=== PATIENT | male | born 1980 | race Two or more races ===

== ENCOUNTER 2025-01-31 14:09 | Inpatient (IN) | payer OTHER ==
[~2025-01-31] VITALS: Ht 170.2 cm; Wt 86.0 kg
[2025-01-31 16:24] LABS: APPEARANCE,URINE CLEAR (CLEAR); BILIRUBIN,URINE NEGATIVE (NEGATIVE); COLOR,URINE COLORLESS (YELLOW); GLUCOSE, URINE (UA) NEGATIVE (NEGATIVE); KETONES,URINE NEGATIVE (NEGATIVE); LEUKOCYTE ESTERASE ,URINE NEGATIVE (NEGATIVE); NITRATE,URINE NEGATIVE (NEGATIVE); OCCULT BLOOD,URINE NEGATIVE (NEGATIVE); PROTEIN,URINE NEGATIVE (NEGATIVE); UROBILINOGEN,URINE <=1.0 mg/dL (<=1.0)
[2025-01-31 16:45] LABS: BASOPHILS % (AUTO) 0.4 % (0.0-2.0); EOSINOPHILS % (AUTO) 1.9 % (1.0-6.0); HEMATOCRIT 42.2 % (41-53); HEMOGLOBIN 14.6 g/dL (13.5-17.5); LYMPHOCYTES # (AUTO) 1.9 K/uL (1.0-4.8); LYMPHOCYTES % (AUTO) 22.4 % (22.0-44.0); MEAN CORPUSCULAR HEMOGLOBIN 31.4 pg (26.0-34.0); MEAN CORPUSCULAR HGB CONC 34.5 G/dL (31.0-37.0); MEAN CORPUSCULAR VOLUME 91 fL (80-100); MONOCYTES # (AUTO) 0.6 K/uL (0.1-1.0); NEUTROPHILS # (AUTO) 5.6 K/uL (1.8-7.7); NEUTROPHILS % (AUTO) 68.3 % (40.0-70.0); PLATELET COUNT (AUTO) 207 K/uL (150-450); RED BLOOD CELL COUNT(AUTO) 4.63 MIL/uL (4.50-5.90); RED CELL DISTRIBUTION WIDTH 13.6 % (11.5-14.5); WHITE BLOOD COUNT (AUTO) 8.2 K/uL (4.5-11.0)
[2025-01-31] MEDS: KETOROLAC TROMETHAMINE 30 MG/ML VIAL IVP ONE (16:55)
[2025-01-31] MEDS: ONDANSETRON HCL 4 MG/2 ML VIAL IVP ONE (16:55)
[2025-01-31] MEDS: SODIUM CHLORIDE 0.9% 1,000 ML IV ONE (16:56)
[2025-01-31] MEDS: TAMSULOSIN HCL 0.4 MG CAPSULE PO ONE ×2 (16:56→21:30)
[2025-01-31 17:05] LABS: CALCIUM, TOTAL 9.2 mg/dL (8.8-10.5); CREATININE 1.99 mg/dL (0.60-1.30); POTASSIUM 3.9 mmol/L (3.5-5.1)
[2025-01-31] MEDS ORDERED: ALBUTEROL SULFATE 2.5 MG/0.5 ML NEB SOLUTION NEB PRN (19:30)
[2025-01-31] MEDS ORDERED: MAGNESIUM HYDROXIDE SUSPENSION 30 ML UDCUP PO PRN (19:30)
[2025-01-31] MEDS: SODIUM CHLORIDE 0.9% 1,000 ML IV SCH (19:30)
[2025-01-31] MEDS ORDERED: BISACODYL 10 MG RECTAL RECTAL SUPPOSITORY PR PRN (19:30)
[2025-01-31] MEDS ORDERED: IPRATROPIUM BROMIDE 0.5 MG/2.5 ML NEB SOLUTION NEB PRN (19:30)
[2025-01-31] MEDS ORDERED: ZOLPIDEM TARTRATE 5 MG TABLET PO PRN (19:30)
[2025-01-31] MEDS: MORPHINE SULFATE 2 MG/ML SYRINGE IVP PRN (22:04)
[2025-01-31] MEDS: ONDANSETRON HCL 4 MG/2 ML VIAL IVP PRN (22:05)
[2025-02-01 02:17] VITALS: BP 117/82; PULSE 56; RESP 0; RESP 18; TEMP 97.9; O2SAT 96
[2025-02-01 08:00] VITALS: BP 112/72; PULSE 60; RESP 19; TEMP 97.5; O2SAT 99
[2025-02-01] MEDS: PANTOPRAZOLE SODIUM 40 MG DR TABLET PO SCH (08:18)
[2025-02-01] MEDS: ACETAMINOPHEN 325 MG TABLET PO PRN (10:49)
[2025-02-01 12:13] LABS: BASOPHILS % (AUTO) 0.4 % (0.0-2.0); EOSINOPHILS % (AUTO) 2.6 % (1.0-6.0); HEMATOCRIT 40.9 % (41-53); HEMOGLOBIN 14.2 g/dL (13.5-17.5); LYMPHOCYTES # (AUTO) 1.3 K/uL (1.0-4.8); LYMPHOCYTES % (AUTO) 20.7 % (22.0-44.0); MEAN CORPUSCULAR HEMOGLOBIN 31.4 pg (26.0-34.0); MEAN CORPUSCULAR HGB CONC 34.7 G/dL (31.0-37.0); MEAN CORPUSCULAR VOLUME 90 fL (80-100); MONOCYTES # (AUTO) 0.4 K/uL (0.1-1.0); MONOCYTES % (AUTO) 7.1 % (2.0-9.0); NEUTROPHILS # (AUTO) 4.2 K/uL (1.8-7.7); NEUTROPHILS % (AUTO) 69.2 % (40.0-70.0); PLATELET COUNT (AUTO) 202 K/uL (150-450); RED BLOOD CELL COUNT(AUTO) 4.53 MIL/uL (4.50-5.90); RED CELL DISTRIBUTION WIDTH 13.8 % (11.5-14.5); WHITE BLOOD COUNT (AUTO) 6.1 K/uL (4.5-11.0)
[2025-02-01 12:22] LABS: CALCIUM, TOTAL 8.7 mg/dL (8.8-10.5); CREATININE 2.11 mg/dL (0.60-1.30)
[2025-02-01 18:05] LABS: CREATININE,URINE RANDOM 36.4 mg/dL (30.0-125.0); SODIUM,URINE RANDOM 122 mmol/l (20-110)
[2025-02-01 18:17] LABS: PROTEIN,URINE RANDOM < 6 mg/dL (0-11.9)
[2025-02-01 19:32] VITALS: BP 104/64; PULSE 84; RESP 18; TEMP 98.2; O2SAT 96
[2025-02-02 04:18] VITALS: BP 98/66; PULSE 73; RESP 18; TEMP 97.9; O2SAT 97
[2025-02-02 08:27] VITALS: BP 107/74; PULSE 65; RESP 18; TEMP 98.2; O2SAT 97
[2025-02-02 11:22] LABS: BASOPHILS % (AUTO) 0.4 % (0.0-2.0); EOSINOPHILS % (AUTO) 2.2 % (1.0-6.0); HEMATOCRIT 41.2 % (41-53); HEMOGLOBIN 14.4 g/dL (13.5-17.5); LYMPHOCYTES # (AUTO) 1.6 K/uL (1.0-4.8); LYMPHOCYTES % (AUTO) 24.2 % (22.0-44.0); MEAN CORPUSCULAR HEMOGLOBIN 31.5 pg (26.0-34.0); MEAN CORPUSCULAR HGB CONC 34.9 G/dL (31.0-37.0); MEAN CORPUSCULAR VOLUME 90 fL (80-100); MONOCYTES # (AUTO) 0.5 K/uL (0.1-1.0); MONOCYTES % (AUTO) 7.4 % (2.0-9.0); NEUTROPHILS # (AUTO) 4.3 K/uL (1.8-7.7); NEUTROPHILS % (AUTO) 65.8 % (40.0-70.0); PLATELET COUNT (AUTO) 220 K/uL (150-450); RED BLOOD CELL COUNT(AUTO) 4.55 MIL/uL (4.50-5.90); RED CELL DISTRIBUTION WIDTH 13.7 % (11.5-14.5); WHITE BLOOD COUNT (AUTO) 6.5 K/uL (4.5-11.0)
[2025-02-02 11:57] LABS: ALBUMIN 3.3 g/dL (3.4-5.0); BILIRUBIN,TOTAL 1.1 mg/dL (0.1-1.0); CALCIUM, TOTAL 8.7 mg/dL (8.8-10.5); CREATININE 1.84 mg/dL (0.60-1.30); POTASSIUM 3.6 mmol/L (3.5-5.1); TOTAL PROTEIN, SERUM 6.5 g/dL (6.4-8.2)
[2025-02-02] MEDS ORDERED: MIDAZOLAM HCL 2 MG/2 ML VIAL ONE (12:00)
[2025-02-02] MEDS ORDERED: FentaNYL CITRATE PF 100 MCG/2 ML VIAL ONE (12:00)
[2025-02-02 14:07] LABS: ALBUMIN/CREATININE RATIO <7 mg/g creat (0-29); CREATININE, URINE (mALB) 40.2 mg/dL (Not Estab.)
[2025-02-02] MEDS ORDERED: RINGERS SOLUTION,LACTATED 1,000 ML IV ONE (14:35)
[2025-02-02] MEDS: CHLORHEXIDINE GLUCONATE 2% TOWELETTE [2'S/6'S] TP ONE (15:19)
[2025-02-02] MEDS: ETHYL ALCOHOL 62% ANTISEPTIC NASAL SANITIZER 0.6 ML AMPUL NASAL ONE (15:20)
[2025-02-02] MEDS: IOHEXOL 240 MG/ML 20 ML VIAL ONE ×2 (15:45)
[2025-02-02] MEDS: LIDOCAINE 2% 11 ML JELLY TP ONE (15:45)
[2025-02-02] MEDS ORDERED: MEPERIDINE-PF 25 MG/ML VIAL IVP PRN (16:15)
[2025-02-02] MEDS ORDERED: FentaNYL CITRATE PF 100 MCG/2 ML VIAL IVP PRN (16:15)
[2025-02-02] MEDS ORDERED: HYDROmorphone HCL 2 MG/ML SYRINGE IVP PRN (16:15)
[2025-02-02] MEDS ORDERED: POTASSIUM CHL 20 MEQ/0.9% NS 1,000 ML IV SCH (17:00)
[2025-02-02] MEDS ORDERED: HYDROCODONE/ACETAMINOPHEN 5-325 MG TABLET PO PRN (17:00)
[2025-02-02] MEDS ORDERED: OxyCODONE HCL/ACETAMINOPHEN 5-325 MG TABLET PO PRN (17:00)
[2025-02-02] MEDS ORDERED: ACETAMINOPHEN 325 MG TABLET PO PRN (17:00)
[2025-02-02] MEDS: HYDROCODONE/ACETAMINOPHEN 5-325 MG TABLET PO PRN (17:55)
[2025-02-02 17:59] VITALS: BP 120/84; PULSE 56; RESP 18; TEMP 97.9; O2SAT 97
[2025-02-02 19:20] VITALS: BP 109/70; PULSE 72; RESP 18; TEMP 98.1; O2SAT 97
[2025-02-02] MEDS: OXYGEN THERAPY IH SCH (20:00)
[2025-02-02] MEDS: CEPHALEXIN MONOHYDRATE 500 MG CAPSULE PO SCH (20:14)
[2025-02-03 04:10] VITALS: BP 109/74; PULSE 63; RESP 18; TEMP 98.1; O2SAT 99
[2025-02-03 07:31] LABS: BASOPHILS % (AUTO) 0.7 % (0.0-2.0); EOSINOPHILS % (AUTO) 0 % (1.0-6.0); HEMATOCRIT 41.1 % (41-53); HEMOGLOBIN 14.1 g/dL (13.5-17.5); LYMPHOCYTES # (AUTO) 1.2 K/uL (1.0-4.8); LYMPHOCYTES % (AUTO) 9.2 % (22.0-44.0); MEAN CORPUSCULAR HEMOGLOBIN 31.3 pg (26.0-34.0); MEAN CORPUSCULAR HGB CONC 34.4 G/dL (31.0-37.0); MEAN CORPUSCULAR VOLUME 91 fL (80-100); MONOCYTES # (AUTO) 0.5 K/uL (0.1-1.0); MONOCYTES % (AUTO) 4.2 % (2.0-9.0); PLATELET COUNT (AUTO) 214 K/uL (150-450); RED BLOOD CELL COUNT(AUTO) 4.52 MIL/uL (4.50-5.90); RED CELL DISTRIBUTION WIDTH 13.2 % (11.5-14.5); WHITE BLOOD COUNT (AUTO) 12.8 K/uL (4.5-11.0)
[2025-02-03 07:36] LABS: NEUTROPHILS % (AUTO) 85.9 % (40.0-70.0)
[2025-02-03 07:37] LABS: RBC MORPHOLOGY COMMENT NORMAL RBC MORPH
[2025-02-03 07:53] LABS: ALBUMIN 2.9 g/dL (3.4-5.0); BILIRUBIN,TOTAL 0.7 mg/dL (0.1-1.0); CALCIUM, TOTAL 8.6 mg/dL (8.8-10.5); CREATININE 1.54 mg/dL (0.60-1.30); TOTAL PROTEIN, SERUM 6.3 g/dL (6.4-8.2)
[2025-02-03 08:56] VITALS: BP 117/72; PULSE 56; RESP 18; TEMP 97.9; O2SAT 99
[2025-02-03 20:03] VITALS: BP 106/63; PULSE 75; RESP 18; TEMP 98.1; O2SAT 99
[2025-02-04 04:53] VITALS: BP 118/84; PULSE 71; RESP 18; TEMP 97.8; O2SAT 98
[2025-02-04 08:15] VITALS: BP 117/71; PULSE 52; RESP 18; TEMP 98.1; O2SAT 98
[2025-02-04] MEDS ORDERED: CEPH-558 PO (13:49)
== END 2025-02-04 16:00 | disposition home or self-care (01) | DRG 659 ==
LOC: EMS 14:15 → EDH 22:47 → 6S 02-01 01:55
PROVIDERS: ADMIT Hospitalist; ATTEND Hospitalist
PROC: BT1D1ZZ Fluoroscopy of Right Kidney, Ureter and Bladder using Low Osmolar Contrast (ICD-10-PCS; 2025-02-02)
PROC: 0T768DZ Dilation of Right Ureter with Intraluminal Device, Via Natural or Artificial Opening Endoscopic (ICD-10-PCS; principal; 2025-02-02 15:45)
DX: N13.2 Hydronephrosis with renal and ureteral calculous obstruction (principal); R65.11 Systemic inflammatory response syndrome (SIRS) of non-infectious origin with acute organ dysfunction; K42.9 Umbilical hernia without obstruction or gangrene; J43.9 Emphysema, unspecified; R31.0 Gross hematuria; T39.395A Adverse effect of other nonsteroidal anti-inflammatory drugs [NSAID], initial encounter; N17.0 Acute kidney failure with tubular necrosis; Z87.442 Personal history of urinary calculi; Z90.49 Acquired absence of other specified parts of digestive tract; Y92.89 Other specified places as the place of occurrence of the external cause; Z63.4 Disappearance and death of family member
CPT/HCPCS: 71250; 74176; 80048; 80053; 81003; 82043; 82570; 83690; 84156; 84300; 85025; 99285; G0378; J1885; J2250; J2270; J2405; J3010; J3480; J7030; J7120; Q9966